=== PATIENT | female | born 1975 | race Caucasian/White ===

== ENCOUNTER 2017-03-19 18:44 | Emergency (ER) | payer BC ==
[2017-03-19] MEDS ORDERED: ASPIRIN 81 MG CHEW PO STA (18:55)
--- NOTE | 2017-03-19 19:15 | ED ---
Chest Pain HPI - General Chief Complaint: Chest Pain Stated Complaint: chest pain Time Seen by Provider: 03/19/17 18:55 Source: patient, RN notes reviewed Mode of arrival: wheelchair Limitations: no limitations - History of Present Illness Initial Comments: Patient is a 41-year-old female presents to the emergency room for evaluation of chest pain. Patient states on Thursday she was moving furniture and began having left-sided chest pain. Patient states the pain is worse when she moves or takes a deep breath. Patient states the pain is slightly relieved when she presses over the area. Patient originally thought was pleurisy or rib injury. Patient states the pain was worsening throughout the week so she went and saw her primary care provider yesterday. Patient states they did lab work, chest x- ray and every turned out normal besides her EKG. Patient states that they noticed abnormal findings on EKG and scheduled a stress echo for her tomorrow. Patient states that today the pain began worsening so she came here to be evaluated. Patient does state she has a history of anxiety. Patient states she takes xanax as needed. Patient states that she took a Xanax on the way here in the chest pain has subsided. Patient states that she is having 7 out of 10 pain. Patient denies current shortness of breath. Patient does state she smokes daily. Patient denies headache or dizziness. Patient denies nausea or vomiting. Patient denies any previous cardiac history. Patient denies abdominal pain. Patient denies fevers or chills. - Related Data Home Medications Medication Instructions Recorded Confirmed ALPRAZolam [Xanax] 0.25 mg PO DAILY PRN 03/19/17 03/19/17 Aspirin 81 mg PO DAILY 03/19/17 03/19/17 Thyroid,Pork [[place] Thyroid] 15 mg PO DAILY 03/19/17 03/19/17 Thyroid,Pork [[place] Thyroid] 30 mg PO DAILY 03/19/17 03/19/17 Previous Rx's Medication Instructions Recorded Levofloxacin [Levaquin] 500 mg PO DAILY #7 tab 03/19/17 Allergies Allergy/AdvReac Type Severity Reaction Status Date / Time No Known Allergies Allergy Verified 03/19/17 19:43 Review of Systems ROS Statement: Those systems with pertinent positive or pertinent negative responses have been documented in the HPI. ROS Other: All systems not noted in ROS Statement are negative. EKG Findings - EKG Comments: EKG Findings:: Normal sinus rhythm, ventricular rate 71 bpm, DC interval 126 ms , QRS duration 86 ms, QT/QTC 396/430 ms Past Medical History Past Medical History: Thyroid Disorder History of Any Multi-Drug Resistant Organisms: None Reported Additional Past Surgical History / Comment(s): endometrosis Past Psychological History: Anxiety Smoking Status: Current some day smoker Past Alcohol Use History: Occasional Past Drug Use History: None Reported General Exam - General Exam Comments Initial Comments: Laying in exam room, no distress. Limitations: no limitations General appearance: alert, in no apparent distress Head exam: Present: atraumatic, normocephalic, normal inspection Eye exam: Present: normal appearance, PERRL, EOMI Pupils: Present: normal accommodation ENT exam: Present: normal exam Neck exam: Present: normal inspection Respiratory exam: Present: normal lung sounds bilaterally, chest wall tenderness (Producible tenderness on palpating over left anterior lateral chest wall). Absent: respiratory distress, wheezes, rales Cardiovascular Exam: Present: regular rate, normal rhythm, normal heart sounds GI/Abdominal exam: Present: soft, normal bowel sounds. Absent: distended, tenderness, guarding, rebound, rigid Extremities exam: Present: normal inspection Back exam: Present: normal inspection Neurological exam: Present: alert, oriented X3, CN II-XII intact Psychiatric exam: Present: normal affect, normal mood Skin exam: Present: warm, dry, intact, normal color. Absent: rash Course Vital Signs 03/19/17 03/19/17 03/19/17 18:47 20:02 20:44 Temperature 98.2 F 98.5 F Pulse Rate 89 78 70 Respiratory 17 18 18 Rate Blood Pressure 126/70 111/74 115/73 O2 Sat by Pulse 97 96 98 Oximetry Chest Pain [facility] patient is a 41-year-old female presents to the emergency room for evaluation of chest pain. Pain is reproducible on palpation and is worse with taking a deep breath. Cardiac enzymes within normal limits. Chest x-ray significant for left pleural effusion, which could possibly be infiltrates. Patient was placed on antibiotics to cover for infectious infiltrate. Patient still advised to follow-up with echo stress test tomorrow. Patient also advised to follow-up with primary care provider for follow-up for resolution of effusion. Patient states she understands everything that was discussed with her. Return parameters discussed. Case discussed Dr. Polo. Disposition Clinical Impression: Left pulmonary infiltrate on CXR, Pleurisy with effusion Disposition: HOME SELF-CARE Condition: Good Instructions: Pleurisy (ED), Pleural Effusion (ED) Additional Instructions: Please follow-up for echo stress test tomorrow. Take antibiotics as directed. Please follow up with primary care provider in 1-2 days. If any new symptom arises or symptoms worsen, return to ER as soon as possible. Prescriptions: Levofloxacin [Levaquin] 500 mg PO DAILY #7 tab Referrals: Yobani Villanueva MD [Primary Care Provider] - 1-2 days Time of Disposition: 20:27
[2017-03-19 19:23] LABS: Basophils # (A) 0.1 k/uL (0-0.2); Basophils % (A) 1 %; CH 32.1; Eosinophils # (A) 0.2 k/uL (0-0.7); Eosinophils % (A) 2 %; HCT 39.8 % (34.0-46.0); HDW 2.64; HGB 13.6 gm/dL (11.4-16.0); Luc # (Auto) 0.11; Luc % (Auto) 1; Lymphocytes # (A) 1.7 k/uL (1.0-4.8); Lymphocytes % (A) 16 %; MCH 32.3 pg (25.0-35.0); MCV 95.1 fL (80.0-100.0); Mean Platelet Volume 8.2; Monocytes # (A) 0.4 k/uL (0-1.0); Monocytes % (A) 4 %; Neutrophils % (A) 77 %; RBC 4.19 m/uL (3.80-5.40); RDW 14.2 % (11.5-15.5); WBC 10.4 k/uL (3.8-10.6); WBC (Perox) 10.45
[2017-03-19 19:27] LABS: Appearance,Urine Clear (Clear); Bilirubin,Urine Negative (Negative); Glucose,Urine (UA) Negative (Negative); Ketones,Urine Negative (Negative); Leukocyte Esterase,Urine Negative (Negative); Nitrite,Urine Negative (Negative); PH, Urine 6.5 (5.0-8.0); Protein,Urine Negative (Negative); Specific Gravity,Urine 1.001 (1.001-1.035); UA Billing (MACRO vs. MICRO) CHEM; Urobilinogen,Urine <2.0 mg/dL (<2.0)
--- NOTE | 2017-03-19 19:29 | XR ---
EXAMINATION TYPE: XR chest 2V DATE OF EXAM: 03/19/2017 COMPARISON: NONE HISTORY: Chest pain TECHNIQUE: Frontal and lateral views of the chest are obtained. FINDINGS: Heart and mediastinum are normal. There is blunting of left costophrenic angle. There are no hilar masses. Lungs are clear of infiltrate. There are chest leads. There is no heart failure. IMPRESSION: Small left pleural effusion and pleural reaction. Normal heart.
[2017-03-19 19:35] LABS: ALT 19 U/L (9-52); AST 19 U/L (14-36); Alkaline Phosphatase 63 U/L (38-126); Amylase 39 U/L (30-110); Anion Gap 8 mmol/L; Blood Urea Nitrogen 5 mg/dL (7-17); Calcium 9.7 mg/dL (8.4-10.2); Carbon Dioxide 27 mmol/L (22-30); Chloride 103 mmol/L (98-107); Glucose 104 mg/dL (74-99); Magnesium 1.6 mg/dL (1.6-2.3); Non-African American GFR(MDRD) >60 (>60 ml/min/1.73 sqM); Potassium 3.8 mmol/L (3.5-5.1); Sodium 138 mmol/L (137-145); Total Bilirubin 0.6 mg/dL (0.2-1.3); Total Protein 7.6 g/dL (6.3-8.2)
[2017-03-19 19:38] LABS: Creatine Kinase 55 U/L (30-135)
[2017-03-19 19:50] LABS: Creatine Kinase MB <0.2 ng/mL (0.0-2.4); Troponin I <0.012 ng/mL (0.000-0.034)
[2017-03-19 19:54] LABS: INR 1.1 (<1.1); Partial Thromboplastin Time 27.3 sec (22.0-30.0); Prothrombin Time 10.9 sec (9.0-12.0)
[2017-03-19 20:02] VITALS: RESP 18
[2017-03-19 20:45] VITALS: BP 115/73; PULSE 70; TEMP 98.5
== END 2017-03-19 20:49 | disposition home or self-care (01) ==
LOC: EC 18:44
DX: J90 Pleural effusion, not elsewhere classified (principal); F41.9 Anxiety disorder, unspecified; E07.9 Disorder of thyroid, unspecified; F17.200 Nicotine dependence, unspecified, uncomplicated; Z79.899 Other long term (current) drug therapy; Z79.82 Long term (current) use of aspirin
CPT/HCPCS: 36415; 71020; 80053; 81003; 82150; 82550; 82553; 83690; 83735; 84484; 85025; 85379; 85610; 85730; 93005; 99285

== ENCOUNTER → 2017-03-20 | Outpatient (CLI) | payer BC ==
--- NOTE | 2017-03-20 11:14 | ECHOS ---
DATE OF SERVICE: 03/20/2017 STRESS ECHOCARDIOGRAM INDICATION: Abnormal EKG/Chest pain. BASELINE HEART RATE: 73 BASELINE BLOOD PRESSURE: 144/66 MAXIMUM HEART RATE: 160 MAXIMUM BLOOD PRESSURE: 133/71 85% MPHR: 150 100% MPHR: 177 METS: 8.0 MAXIMUM STAGE REACHED: III TOTAL EXERCISE TIME: 6:49 Baseline EKG shows sinus rhythm with poor R-wave progression and ST-T wave changes suggestive of ischemia with occasional PVC's. Patient exercised on Diogo protocol for a total of 6 minutes and 49 seconds, achieving 8 METS, 90% of predicted maximum heart rate without chest pain. With peak exercise, there was 1 mm [address] full lateral [address] segment depression noted. Baseline echo shows normal left ventricular size, wall motion and systolic function. Post-exercise, there is normal hyperdynamic response of all segments of myocardium noted. CONCLUSION: 1. Average exercise tolerance. 2. Inconclusive EKG part of the stress test due to baseline EKG abnormalities. 3. Negative stress echo. [id number]
== END | disposition home or self-care (01) ==
LOC: RADNMMAIN 08:55
PROVIDERS: ATTEND Family Medicine
DX: R07.9 Chest pain, unspecified (principal); R94.31 Abnormal electrocardiogram [ECG] [EKG]
CPT/HCPCS: 93017; 93350

== ENCOUNTER → 2024-01-21 | Outpatient (CLI) | payer BC | END | disposition home or self-care (01) | LOC: RADCTMAIN 18:12 | PROVIDERS: ATTEND Family Medicine | DX: K46.9 Unspecified abdominal hernia without obstruction or gangrene (principal); R10.84 Generalized abdominal pain ==